=== PATIENT | female | born 1935 | race Caucasian/White ===

== ENCOUNTER → 2017-05-29 | Outpatient (CLI) | payer MEDICARE | END | disposition home or self-care (01) | LOC: PCVCCLINIC 13:35 | PROVIDERS: ATTEND Internal Medicine Cardiovascular Disease | DX: I47.1 Supraventricular tachycardia (principal); E78.1 Pure hyperglyceridemia; I77.3 Arterial fibromuscular dysplasia; M19.90 Unspecified osteoarthritis, unspecified site; Z87.891 Personal history of nicotine dependence; Z79.82 Long term (current) use of aspirin; Z79.899 Other long term (current) drug therapy | CPT/HCPCS: 80061; 93005; G0463 ==

== ENCOUNTER → 2018-06-19 | Outpatient (CLI) | payer MEDICARE | END | disposition home or self-care (01) | LOC: PCVCCLINIC 15:00 | PROVIDERS: ATTEND Internal Medicine Cardiovascular Disease | DX: I47.1 Supraventricular tachycardia (principal); I10 Essential (primary) hypertension; E78.5 Hyperlipidemia, unspecified; M19.90 Unspecified osteoarthritis, unspecified site; Z87.891 Personal history of nicotine dependence; Z88.8 Allergy status to other drugs, medicaments and biological substances | CPT/HCPCS: 80061; 93005; G0463 ==

== ENCOUNTER → 2018-10-29 | Outpatient (CLI) | payer MEDICARE ==
--- NOTE | 2018-10-29 10:09 | PCVCIMAG ---
APPROVED REPORT Indications CVA/TIA: Aphasia Doppler Spectral Velocity Analysis PSV / EDVPSV / EDV ECA (R) 54 / 4 cm/sECA (L) 46 / 4 cm/s dICA (R) 53 / 15 cm/sdICA (L) 58 / 17 cm/s Adan (R) 60 / 17 cm/smICA (L) 42 / 9 cm/s pICA (R) 41 / 5 cm/spICA (L) 74 / 17 cm/s Bulb (R) 49 / 8 cm/sBulb (L) 55 / 10 cm/s dCCA (R) 58 / 11 cm/sdCCA (L) 58 / 11 cm/s mCCA (R) 77 / 12 cm/smCCA (L) 75 / 12 cm/s Vert (R) 48 / 9 cm/sVert (L) 43 / 10 cm/s ICA/CCA 1.03ICA/CCA 1.28 Findings The right carotid bulb has no significant plaque. The right proximal internal carotid artery shows no significant stenosis. The right common carotid artery shows no significant stenosis. The right external carotid artery shows no significant stenosis. The left carotid bulb has no significant plaque. The left proximal internal carotid artery shows no significant stenosis. The left common carotid artery shows no significant stenosis. The left external carotid artery shows no significant stenosis. Conclusion 1. Normal bilateral carotid duplex 2. Antegrade vertebral flow
== END | disposition home or self-care (01) ==
LOC: PCVCIMAG 10:30
PROVIDERS: ATTEND Internal Medicine Cardiovascular Disease
DX: R47.01 Aphasia (principal); I48.91 Unspecified atrial fibrillation; E78.00 Pure hypercholesterolemia, unspecified; G45.9 Transient cerebral ischemic attack, unspecified; Z87.891 Personal history of nicotine dependence
CPT/HCPCS: 36415; 80061; 93005; 93880; G0463